=== PATIENT | male | born 1950 | race Hispanic/Latino ===

== ENCOUNTER 2023-06-09 14:43 | Emergency (ER) | payer OTHER ==
[2023-06-09 15:47] LABS: Bilirubin Neg (Negative); Blood, Urine Negative (Negative); Clarity Clear (Clear); Glucose, Urine (Dipstick) >=1000 mg/dL (Negative); Ketone, Urine Negative (Negative); Leukocyte Negative (Negative); Nitrite Positive (Negative); Protein, Urine (Dipstick) Negative (Neg-Trace); Specific Gravity, Urine 1.005 (1.005-1.030); Urobilinogen Normal mg/dL (Less than 2)
[2023-06-09 15:53] LABS: #Eosinphils 0.1 10x3/uL (0.0-0.5); #Monocytes 0.3 10x3/uL (0.0-1.1); #Neutrophils 4.9 10x3/uL (1.5-8.4); %Basophils 0.5 % (0.0-2.0); %Eosinophils 0.8 % (0.0-6.0); %Lymphocytes 14.4 % (18.0-47.0); %Monocytes 4.8 % (0.0-10.0); %Neutrophils 79.2 % (40.0-75.0); Hematocrit 31.1 % (38.8-50.0); Hemoglobin 9.5 g/dL (13.5-17.5); Mean Corpuscular HGB CONC 30.5 g/dL (32.0-36.0); Mean Corpuscular Hemoglobin 22.1 pg (27.0-33.0); Mean Corpuscular Volume 72.5 fl (81.2-95.1); RBC Distribution Width 17.2 % (11.5-14.5); Red Blood Cell (RBC) Count 4.29 10x6/uL (4.32-5.72); White Blood Cell (WBC) Count 6.2 10x3/uL (3.5-10.5)
[2023-06-09 15:54] LABS: Platelet Count 205 10x3/uL (150-450)
[2023-06-09 15:55] LABS: ALT (SGPT) 18 U/L (8-55); AST (SGOT) 17 U/L (5-34); Albumin 3.6 g/dL (3.4-4.8); Alkaline Phosphatase 81 U/L (40-110); Anion Gap 15 mmol/L (10-20); BUN (Urea Nitrogen) 14 mg/dL (8.4-25.7); Bilirubin, Total 0.4 mg/dL (0.2-1.2); CK (CPK) 89 U/L (30-200); Calc. Creatinine Clearance 0 mL/min (70-130); Carbon Dioxide 20 mmol/L (23-31); Chloride 100 mmol/L (98-107); Estimated GFR 76; Lipase 29 U/L (8-78); Potassium 4.6 mmol/L (3.5-5.1); Protein, Total 5.6 g/dL (5.8-8.1); Sodium 130 mmol/L (136-145)
[2023-06-09 15:59] LABS: Actual Bicarbonate (HCO3v) 24.9 mEq/L (22-28); Base Excess -1.6 mEq/L (-2 - +2); Calcium, Ionized (venous) 1.08 mmol/L (1.16-1.32); Chloride (VBG) 97 mmol/L (98-106); Hematocrit-VBG 33 % (42.0-52.0); Hemoglobin (Hb) 11.1 g/dL (12.6-17.4); Potassium (VBG) 4.23 mmol/L (3.70-5.30); Puncture Site Other Site; RapidComm Collect By CBN; Sodium 129.4 mmol/L (133-146); pH (venous) 7.317 (7.32-7.43)
[2023-06-09 16:01] LABS: Troponin I Less than 0.010 ng/mL (< 0.028)
[2023-06-09 16:15] LABS: Glucose 514 mg/dL (83-110)
[2023-06-09 16:17] LABS: SARS-CoV-2 NAA Rapid Test Not Detected (NotDetected)
[2023-06-09 16:22] LABS: CAUTI Indications for Culture Alt mental st,lethar; RBC/HPF 0-3 HPF (0-3); Squamous Epithelial 0-3 HPF (0-3); WBC/HPF 0-3 HPF (0-3)
[2023-06-09 16:23] LABS: Bacteria/HPF Rare-Few HPF (None Seen)
[2023-06-09 16:23] LABS: Anisocytosis SLIGHT = 6-15 cells (100X) (0-5/hpf); Hypochromia SLIGHT = 6-15 cells (100X) (0-5/hpf); Microcytosis MODERATE=15-30 cells (100X) (0-5/hpf); Ovalocytes SLIGHT = 2-5 cells (100X) (0-1/hpf)
[2023-06-09 16:24] LABS: Urine Culture Reflex No No
[2023-06-09 16:24] LABS: Platelet Adequacy Comment Appears Adequate
[2023-06-09] MEDS ORDERED: Insulin Regular 300 UNITS/3 ML VIAL ONE (16:37)
[2023-06-09] MEDS ORDERED: cefTRIAXone (ROCEPHIN) 1 GM VIAL ONE (16:57)
== END 2023-06-09 17:30 ==
LOC: CSHERS 14:43
DX: E10.65 Type 1 diabetes mellitus with hyperglycemia (principal); E86.0 Dehydration; N39.0 Urinary tract infection, site not specified; I10 Essential (primary) hypertension; E78.5 Hyperlipidemia, unspecified; K21.9 Gastro-esophageal reflux disease without esophagitis; Z20.822 Contact with and (suspected) exposure to COVID-19; Z79.899 Other long term (current) drug therapy
CPT/HCPCS: 36415; 36416; 71045; 80053; 81001; 82010; 82550; 82805; 83690; 84484; 85025; 87040; 87086; 93005; 96374; J0696; J1815; U0002

== ENCOUNTER 2025-07-09 16:26 | Emergency (ER) | payer OTHER ==
[2025-07-09] MEDS ORDERED: Albuterol 2.5 MG (3 mL) NEB ONE (17:01)
[2025-07-09 17:36] LABS: Actual Bicarbonate (HCO3v) 19.8 mEq/L (22-28); Analyzer IN Cardio CS ER; Base Excess -3.3 mEq/L (-2 - +2); Calcium, Ionized (venous) 1.10 mmol/L (1.16-1.32); Chloride (VBG) 105 mmol/L (98-106); Critical Notified By: Seaholm RT; Hematocrit-VBG 39 % (42.0-52.0); Hemoglobin (Hb) 13.3 g/dL (12.6-17.4); Potassium (VBG) 3.64 mmol/L (3.70-5.30); Puncture Site Other Site; RapidComm Collect By LAB; Sodium 138 mmol/L (133-146)
[2025-07-09 17:56] LABS: #Basophils Less than 0.03 10x3/uL (0.0-0.2); #Eosinophils Less than 0.03 10x3/uL (0.0-0.5); #Monocytes 0.13 10x3/uL (0.0-1.1); #Neutrophils 5.91 10x3/uL (1.5-8.4); %Basophils 0.1 % (0.0-2.0); %Eosinophils 0.3 % (0.0-6.0); %Lymphocytes 12.1 % (18.0-47.0); %Monocytes 1.9 % (0.0-10.0); %Neutrophils 85.5 % (40.0-75.0); Hematocrit 38.8 % (38.8-50.0); Hemoglobin 12.1 g/dL (13.5-17.5); Mean Corpuscular Hemoglobin 25.1 pg (27.0-33.0); Mean Corpuscular Volume 80.5 fL (81.2-95.1); Platelet Count 195 10x3/uL (150-450); Red Blood Cell (RBC) Count 4.82 10x6/uL (4.32-5.72); White Blood Cell (WBC) Count 6.92 10x3/uL (3.5-10.5)
[2025-07-09 18:03] LABS: ALT (SGPT) 20 U/L (Less than 45); AST (SGOT) 22 U/L (11-34); Albumin 3.6 g/dL (3.1-4.5); Alkaline Phosphatase 86 U/L (40-110); Anion Gap 13 mmol/L (10-20); BUN (Urea Nitrogen) 11 mg/dL (8.4-25.7); Bilirubin, Total 0.5 mg/dL (0.3-1.2); Calc. Creatinine Clearance 0 mL/min (70-130); Calcium 8.6 mg/dL (7.8-10.44); Carbon Dioxide 22 mmol/L (23-31); Chloride 109 mmol/L (98-107); Globulin 2.9 g/dL (2.4-3.5); Glucose 209 mg/dL (83-110); Potassium 3.8 mmol/L (3.5-5.1); Sodium 140 mmol/L (136-145)
[2025-07-09] MEDS ORDERED: cefTRIAXone (ROCEPHIN) 1 GM VIAL ONE (18:09)
[2025-07-09 18:10] LABS: Troponin I 0.068 ng/mL (< 0.028)
[2025-07-09] MEDS ORDERED: Azithromycin 250 MG TAB ONE (18:10)
[2025-07-09] MEDS ORDERED: Furosemide 40 MG (4 mL) VIAL ONE (18:24)
== END 2025-07-09 18:30 ==
LOC: CSHERS 16:26 → EEVIPCON 16:26 → CSHERS 18:30
DX: J18.9 Pneumonia, unspecified organism (principal); J98.01 Acute bronchospasm; E10.9 Type 1 diabetes mellitus without complications; I10 Essential (primary) hypertension; E78.5 Hyperlipidemia, unspecified; K21.9 Gastro-esophageal reflux disease without esophagitis; Z79.4 Long term (current) use of insulin; Z79.02 Long term (current) use of antithrombotics/antiplatelets; Z79.899 Other long term (current) drug therapy
CPT/HCPCS: 36415; 71045; 80053; 82805; 83880; 84484; 85025; 87428; 93005; 94640; 94644; 94760; 96374; 96375; J0696; J1940; J7611

== ENCOUNTER 2025-07-13 03:28 | Inpatient (IN) | payer OTHER ==
[2025-07-13] MEDS ORDERED: Furosemide 40 MG (4 mL) VIAL ONE (03:40)
[2025-07-13 03:45] LABS: #Basophils 0.03 10x3/uL (0.0-0.2); #Eosinophils Less than 0.03 10x3/uL (0.0-0.5); #Monocytes 0.67 10x3/uL (0.0-1.1); #Neutrophils 7.04 10x3/uL (1.5-8.4); %Basophils 0.3 % (0.0-2.0); %Eosinophils 0.0 % (0.0-6.0); %Lymphocytes 24.6 % (18.0-47.0); %Monocytes 6.5 % (0.0-10.0); %Neutrophils 68.2 % (40.0-75.0); Hematocrit 33.8 % (38.8-50.0); Hemoglobin 10.7 g/dL (13.5-17.5); Mean Corpuscular Hemoglobin 25.4 pg (27.0-33.0); Mean Corpuscular Volume 80.3 fL (81.2-95.1); Platelet Count 233 10x3/uL (150-450); Red Blood Cell (RBC) Count 4.21 10x6/uL (4.32-5.72); White Blood Cell (WBC) Count 10.32 10x3/uL (3.5-10.5)
[2025-07-13] MEDS ORDERED: Albuterol 2.5 MG (3 mL) NEB ONE (03:56)
[2025-07-13 03:58] LABS: ALT (SGPT) 61 U/L (Less than 45); AST (SGOT) 49 U/L (11-34); Albumin 3.6 g/dL (3.1-4.5); Alkaline Phosphatase 80 U/L (40-110); Anion Gap 11 mmol/L (10-20); BUN (Urea Nitrogen) 17 mg/dL (8.4-25.7); Bilirubin, Total 0.4 mg/dL (0.3-1.2); Calc. Creatinine Clearance 0 mL/min (70-130); Calcium 8.4 mg/dL (7.8-10.44); Carbon Dioxide 25 mmol/L (23-31); Chloride 106 mmol/L (98-107); Globulin 2.6 g/dL (2.4-3.5); Glucose 252 mg/dL (83-110); Potassium 3.3 mmol/L (3.5-5.1); Sodium 139 mmol/L (136-145)
[2025-07-13 04:06] LABS: Troponin I 0.150 ng/mL (< 0.028)
[2025-07-13] MEDS ORDERED: Azithromycin 500 MG VIAL ONE (04:37)
[2025-07-13] MEDS ORDERED: cefTRIAXone (ROCEPHIN) 1 GM VIAL ONE (04:37)
[2025-07-13 04:39] LABS: Actual Bicarbonate (HCO3v) 24.7 mEq/L (22-28); Analyzer IN Cardio CS ICU; Base Excess -0.6 mEq/L (-2 - +2); Calcium, Ionized (venous) 1.10 mmol/L (1.16-1.32); Chloride (VBG) 104 mmol/L (98-106); Critical Notified By: CP.PH; Hematocrit-VBG 35 % (42.0-52.0); Hemoglobin (Hb) 11.9 g/dL (12.6-17.4); Potassium (VBG) 3.17 mmol/L (3.70-5.30); Puncture Site Other Site; Sodium 138 mmol/L (133-146)
[2025-07-13] MEDS ORDERED: Calcium Carbonate 500 MG ChewTAB PO PRN (05:03)
[2025-07-13] MEDS ORDERED: Acetaminophen 325 MG TAB PO PRN (05:03)
[2025-07-13] MEDS ORDERED: Ondansetron PF 4 MG/2 ML Vial IVP PRN (05:03)
[2025-07-13] MEDS ORDERED: Senokot S 8.6-50 MG TAB PO PRN (05:03)
[2025-07-13] MEDS ORDERED: Electrolyte Replacement Protocol 1 EACH FS SCH (05:15)
[2025-07-13 05:46] VITALS: BMI 30.4
[2025-07-13] MEDS: Losartan 25 MG TAB PO SCH (07:30)
[2025-07-13] MEDS: Aspirin Chewable 81 MG TAB PO SCH (07:30)
[2025-07-13] MEDS ORDERED: Electrolyte Replacement Protocol 1 EACH FS PRN (07:31)
[2025-07-13 07:34] LABS: Troponin I 0.163 ng/mL (< 0.028)
[2025-07-13] MEDS: Pantoprazole 40 MG DR.TAB PO SCH (08:46)
[2025-07-13] MEDS: Enoxaparin 40 MG (0.4 mL) SYRINGE SC SCH (08:47)
[2025-07-13] MEDS ORDERED: Dextrose 50% Abboject 50 ML SYRINGE SLOW IVP PRN (09:52)
[2025-07-13] MEDS ORDERED: Glucagon 1 MG/ML KIT IM PRN (09:52)
[2025-07-13 10:31] LABS: Troponin I 0.130 ng/mL (< 0.028)
[2025-07-13 12:40] LABS: Potassium 4.0 mmol/L (3.5-5.1)
[2025-07-13] MEDS: Furosemide 40 MG (4 mL) VIAL SLOW IVP SCH (12:42)
[2025-07-13] MEDS: PNEUMOC 20-VAL CONJ-DIP CRM/PF 0.5 ML SYRINGE IM ONE (15:36)
[2025-07-13] MEDS: Carvedilol 6.25 MG TAB PO SCH ×2 (17:57→18:04)
[2025-07-13] MEDS: Insulin NPH Human Isophane 100 UNITS/ML (10 ML VIAL) SQ SCH (20:33)
[2025-07-13] MEDS: DULoxetine 30 MG CAP PO SCH (20:36)
[2025-07-14 03:47] LABS: #Basophils Less than 0.03 10x3/uL (0.0-0.2); #Eosinophils Less than 0.03 10x3/uL (0.0-0.5); #Monocytes 0.76 10x3/uL (0.0-1.1); #Neutrophils 11.43 10x3/uL (1.5-8.4); %Basophils 0.1 % (0.0-2.0); %Eosinophils 0.0 % (0.0-6.0); %Lymphocytes 13.4 % (18.0-47.0); %Monocytes 5.4 % (0.0-10.0); %Neutrophils 80.7 % (40.0-75.0); Hematocrit 37.5 % (38.8-50.0); Hemoglobin 11.7 g/dL (13.5-17.5); Mean Corpuscular Hemoglobin 25.2 pg (27.0-33.0); Mean Corpuscular Volume 80.6 fL (81.2-95.1); Platelet Count 249 10x3/uL (150-450); Red Blood Cell (RBC) Count 4.65 10x6/uL (4.32-5.72); White Blood Cell (WBC) Count 14.16 10x3/uL (3.5-10.5)
[2025-07-14 04:03] LABS: ALT (SGPT) 51 U/L (Less than 45); AST (SGOT) 25 U/L (11-34); Albumin 3.7 g/dL (3.1-4.5); Alkaline Phosphatase 80 U/L (40-110); Anion Gap 11 mmol/L (10-20); BUN (Urea Nitrogen) 25 mg/dL (8.4-25.7); Bilirubin, Total 0.5 mg/dL (0.3-1.2); Calc. Creatinine Clearance 94 mL/min (70-130); Calcium 8.7 mg/dL (7.8-10.44); Carbon Dioxide 27 mmol/L (23-31); Cardiac Risk 2.8 (Less than 4.5); Chloride 107 mmol/L (98-107); Cholesterol 125 mg/dl (< 200 Desired); Globulin 2.9 g/dL (2.4-3.5); Glucose 168 mg/dL (83-110); HDL Cholesterol 45 mg/dL (>60 Neg Risk); LDL Cholesterol, Calculated 70 mg/dL; Magnesium 2.4 mg/dL (1.6-2.6); Potassium 3.7 mmol/L (3.5-5.1); Sodium 141 mmol/L (136-145); Triglycerides 49 mg/dL (Less than 150)
[2025-07-14] MEDS: predniSONE 20 MG TAB PO SCH (09:22)
[2025-07-14] MEDS: Insulin NPH Human Isophane 100 UNITS/ML (10 ML VIAL) SQ SCH (09:23)
[2025-07-14] MEDS: Mometasone 200 MCG/Formoterol 5 MCG 60 PUFF INHALER INH SCH ×2 (14:24→20:23)
[2025-07-14] MEDS: Carvedilol 12.5 MG TAB PO SCH (17:12)
[2025-07-14] MEDS: Amiodarone In Dextrose 150 MG in Premix 1 BAG IVPB SCH (18:20)
[2025-07-14] MEDS: Amiodarone In Dextrose 360 MG in Premix 1 BAG IVPB SCH (19:09)
[2025-07-14] MEDS ORDERED: Amiodarone 200 MG TAB PO SCH (21:00)
[2025-07-15 04:31] LABS: #Basophils Less than 0.03 10x3/uL (0.0-0.2); #Eosinophils Less than 0.03 10x3/uL (0.0-0.5); #Monocytes 0.19 10x3/uL (0.0-1.1); #Neutrophils 11.81 10x3/uL (1.5-8.4); %Basophils 0.2 % (0.0-2.0); %Eosinophils 0.0 % (0.0-6.0); %Lymphocytes 9.5 % (18.0-47.0); %Monocytes 1.4 % (0.0-10.0); %Neutrophils 88.6 % (40.0-75.0); Hematocrit 36.8 % (38.8-50.0); Hemoglobin 11.7 g/dL (13.5-17.5); Mean Corpuscular Hemoglobin 24.9 pg (27.0-33.0); Mean Corpuscular Volume 78.5 fL (81.2-95.1); Platelet Count 288 10x3/uL (150-450); Red Blood Cell (RBC) Count 4.69 10x6/uL (4.32-5.72); White Blood Cell (WBC) Count 13.32 10x3/uL (3.5-10.5)
[2025-07-15 04:51] LABS: ALT (SGPT) 45 U/L (Less than 45); AST (SGOT) 19 U/L (11-34); Albumin 3.4 g/dL (3.1-4.5); Alkaline Phosphatase 76 U/L (40-110); Anion Gap 15 mmol/L (10-20); BUN (Urea Nitrogen) 31 mg/dL (8.4-25.7); Bilirubin, Total 0.4 mg/dL (0.3-1.2); Calc. Creatinine Clearance 86 mL/min (70-130); Calcium 8.4 mg/dL (7.8-10.44); Carbon Dioxide 22 mmol/L (23-31); Chloride 104 mmol/L (98-107); Globulin 2.7 g/dL (2.4-3.5); Glucose 185 mg/dL (83-110); Potassium 3.9 mmol/L (3.5-5.1); Sodium 137 mmol/L (136-145)
[2025-07-15] MEDS: Furosemide 40 MG TAB PO SCH (08:42)
[2025-07-15] MEDS: Amiodarone 200 MG TAB PO SCH ×2 (13:00→21:47)
[2025-07-16 06:13] LABS: #Basophils Less than 0.03 10x3/uL (0.0-0.2); #Eosinophils Less than 0.03 10x3/uL (0.0-0.5); #Monocytes 0.72 10x3/uL (0.0-1.1); #Neutrophils 12.46 10x3/uL (1.5-8.4); %Basophils 0.1 % (0.0-2.0); %Eosinophils 0.1 % (0.0-6.0); %Lymphocytes 15.4 % (18.0-47.0); %Monocytes 4.6 % (0.0-10.0); %Neutrophils 79.4 % (40.0-75.0); Hematocrit 35.9 % (38.8-50.0); Hemoglobin 11.4 g/dL (13.5-17.5); Mean Corpuscular Hemoglobin 24.8 pg (27.0-33.0); Mean Corpuscular Volume 78.2 fL (81.2-95.1); Platelet Count 289 10x3/uL (150-450); Red Blood Cell (RBC) Count 4.59 10x6/uL (4.32-5.72); White Blood Cell (WBC) Count 15.68 10x3/uL (3.5-10.5)
[2025-07-16 06:25] LABS: Sodium 139 mmol/L (136-145)
[2025-07-16 06:26] LABS: ALT (SGPT) 39 U/L (Less than 45); AST (SGOT) 14 U/L (11-34); Albumin 3.2 g/dL (3.1-4.5); Alkaline Phosphatase 76 U/L (40-110); Anion Gap 14 mmol/L (10-20); BUN (Urea Nitrogen) 25 mg/dL (8.4-25.7); Bilirubin, Total 0.5 mg/dL (0.3-1.2); Calc. Creatinine Clearance 76 mL/min (70-130); Calcium 8.5 mg/dL (7.8-10.44); Carbon Dioxide 24 mmol/L (23-31); Chloride 104 mmol/L (98-107); Globulin 2.6 g/dL (2.4-3.5); Glucose 138 mg/dL (83-110); Potassium 3.1 mmol/L (3.5-5.1)
[2025-07-16] MEDS: predniSONE 20 MG TAB PO SCH (09:29)
[2025-07-16 14:27] LABS: Potassium 4.1 mmol/L (3.5-5.1)
[2025-07-16 16:09] VITALS: BP 102/72; TEMP 96.8
[2025-07-16] MEDS ORDERED: Losartan 25 MG TAB PO SCH (21:00)
== END 2025-07-16 18:39 | DRG 291 ==
LOC: CSHERS 03:28 → SUATTDRO 03:28 → EEVIPCON 03:28 → CSHICU 04:35 → CSHTELE 07-14 19:46
PROVIDERS: ADMIT Internal Medicine; ATTEND Internal Medicine
PROC: 5A09357 Assistance with Respiratory Ventilation, Less than 24 Consecutive Hours, Continuous Positive Airway Pressure (ICD-10-PCS; principal; 2025-07-13)
PROC: 3E03329 Introduction of Other Anti-infective into Peripheral Vein, Percutaneous Approach (ICD-10-PCS; 2025-07-13)
PROC: 3E0234Z Introduction of Serum, Toxoid and Vaccine into Muscle, Percutaneous Approach (ICD-10-PCS; 2025-07-13)
DX: I11.0 Hypertensive heart disease with heart failure (principal); I50.43 Acute on chronic combined systolic (congestive) and diastolic (congestive) heart failure; J96.01 Acute respiratory failure with hypoxia; J18.9 Pneumonia, unspecified organism; J44.1 Chronic obstructive pulmonary disease with (acute) exacerbation; E78.5 Hyperlipidemia, unspecified; I25.10 Atherosclerotic heart disease of native coronary artery without angina pectoris; Z98.890 Other specified postprocedural states; Z88.8 Allergy status to other drugs, medicaments and biological substances; N40.0 Benign prostatic hyperplasia without lower urinary tract symptoms; E11.9 Type 2 diabetes mellitus without complications; I48.0 Paroxysmal atrial fibrillation; Z79.899 Other long term (current) drug therapy; Z79.4 Long term (current) use of insulin
CPT/HCPCS: 36415; 36416; 71045; 80053; 80061; 82805; 83036; 83605; 83735; 83880; 84443; 84484; 85025; 87040; 87428; 93005; 93306; 94640; 94660; 94760; 94762; 96365; 96367; 96375; J0283; J0456; J0696; J1650; J1815; J1940; J2919; J7512; J7611